=== PATIENT | female | born 1990 | race Hispanic/Latino ===

== ENCOUNTER 2023-01-20 15:27 | Outpatient (CLI) | payer BC | END 2023-01-20 15:28 | disposition home or self-care (01) | LOC: BICULT 15:27 | PROVIDERS: ATTEND Family Medicine | DX: O09.892 Supervision of other high risk pregnancies, second trimester (principal); O32.8XX0 Maternal care for other malpresentation of fetus, not applicable or unspecified; Z3A.25 25 weeks gestation of pregnancy | CPT/HCPCS: 76805 ==

== ENCOUNTER 2024-12-14 18:43 | Emergency (ER) | payer BC ==
[2024-12-14] MEDS ORDERED: Dexamethasone 4 MG TAB ONE (19:21)
== END 2024-12-14 19:35 | disposition home or self-care (01) ==
LOC: ERS 18:43
DX: L50.0 Allergic urticaria (principal)
CPT/HCPCS: 99282; J8540

== ENCOUNTER 2024-12-28 14:25 | Emergency (ER) | payer SELFPAY ==
[2024-12-28 15:37] LABS: Bacteria/HPF 2+ HPF (None Seen); Bilirubin Negative (Negative); Blood, Urine Negative (Negative); CAUTI Indications for Culture Pelvic or flank pain; Clarity Clear (Clear); Glucose, Urine (Dipstick) Normal (Negative); Ketone, Urine Negative (Negative); Leukocyte Negative Leu/uL (Negative); Nitrite 2+ (Negative); Protein, Urine (Dipstick) Negative (Neg-Trace); RBC/HPF None Seen HPF (0-3); Specific Gravity, Urine 1.025 (1.002-1.036); Squamous Epithelial 0-3 HPF (0-3); Urobilinogen Normal mg/dL (Less than 2); WBC/HPF 0-3 HPF (0-3); pH, Urine 6.5 (5.0-9.0)
[2024-12-28] MEDS ORDERED: Dexamethasone 10 MG/ML VIAL ONE (15:37)
[2024-12-28] MEDS ORDERED: Famotidine 20 MG TAB ONE (15:37)
[2024-12-28] MEDS ORDERED: diphenhydrAMINE 25 MG CAP ONE (15:37)
[2024-12-28 15:38] LABS: Urine Culture Reflex No No
[2024-12-28 16:02] LABS: Pregnancy Test - Urine (BHCG) Negative (Negative); Specific Gravity 1.025 (1.002-1.036)
[2024-12-28 16:03] LABS: Pregu Control Background? CLEAR/WHITE (CLR/WHITE); Pregu Control Bar Appear? YES (CONTROL BAR)
== END 2024-12-28 16:33 | disposition home or self-care (01) ==
LOC: ERS 14:25
DX: L20.9 Atopic dermatitis, unspecified (principal); N39.0 Urinary tract infection, site not specified
CPT/HCPCS: 81001; 81025; 87077; 87086; 87186; 99283; J1100